=== PATIENT | male | born 1935 | race Caucasian/White ===

== ENCOUNTER 2017-10-04 21:03 | Emergency (ER) | payer MEDICARE ==
[2010-02-18 08:51] VITALS: BMI 21.8
[2017-10-05 00:17] LABS: BASOPHILS 0.6 % (0-2); HEMOGLOBIN 13.2 g/dL (13.5-17.5); IMMATURE GRANULOCYTES 0.4 % (0-5); LYMPHOCYTES 15.6 % (15-50); MCH 31.2 pg (26.0-34.0); MCV 94.6 fL (80.0-100.0); MEAN PLATELET VOLUME 8.8 fL (7.4-10.4); MONOCYTES 6.2 % (2-11); NEUTROPHILS 76.2 % (40-80); PLATELET COUNT 186 10x3/uL (130-400); RBC 4.23 10x6/uL (4.20-6.10); RDW 13.9 % (11.5-14.5); WBC 7.2 10x3/uL (4.8-10.8)
[2017-10-05 00:31] LABS: ALBUMIN 3.4 g/dL (3.4-5.0); ALKALINE PHOSPHATASE 73 U/L (46-116); ALT (SGPT) 21 U/L (10-68); CALC OSMOLALITY 281 mosm/kg (275-300); CALCIUM 9.7 mg/dL (8.5-10.1); CARBON DIOXIDE 26.4 mmol/L (21.0-32.0); CHLORIDE - SERUM 105 mmol/L (98-107); CREATININE - SERUM 1.6 mg/dL (0.6-1.3); POTASSIUM - SERUM 5.1 mmol/L (3.5-5.1); PROTEIN - SERUM 6.9 g/dL (6.4-8.2); SODIUM 137 mmol/L (136-145); UREA NITROGEN 31 mg/dL (7-18); eGFR NON AFRICAN AMERICAN 44 mL/min (90-120)
[2017-10-05 00:34] LABS: GLUCOSE 121 mg/dL (74-106)
[2017-10-05 00:37] LABS: TROPONIN-I < 0.017 ng/mL (0.000-0.060)
[2017-10-05 01:05] LABS: APPEARANCE CLEAR (CLEAR); BILIRUBIN NEGATIVE (NEGATIVE); COLOR YELLOW (YELLOW); GLUCOSE NEGATIVE (NEGATIVE); KETONE NEGATIVE (NEGATIVE); NITRITE NEGATIVE (NEGATIVE); PROTEIN 1+ mg/dL (NEGATIVE); SPECIFIC GRAVITY 1.015 (1.005-1.020); UROBILINOGEN NORMAL (NORMAL)
[2017-10-05 01:06] LABS: BACTERIA NONE SEEN /hpf (NONE SEEN); EPITHELIAL CELLS 0-5 /hpf (0-5); RED CELLS - URINE 0-5 /hpf (0-5); WHITE CELLS - URINE 0-5 /hpf (0-5)
== END 2017-10-05 01:55 | disposition home or self-care (01) ==
LOC: D.ER 21:03
PROVIDERS: Physician Assistant Medical
DX: R42 Dizziness and giddiness (principal); E86.0 Dehydration; I10 Essential (primary) hypertension; Z85.01 Personal history of malignant neoplasm of esophagus

== ENCOUNTER → 2018-02-16 15:49 | Outpatient (CLI) | payer MEDICARE, BC ==
[2010-02-18 08:51] VITALS: BMI 21.8
== END | disposition home or self-care (01) ==
LOC: D.MRI 15:49
DX: G96.8 Other specified disorders of central nervous system (principal)

== ENCOUNTER → 2018-08-02 10:13 | Outpatient (CLI) | payer MEDICARE, BC ==
[2010-02-18 08:51] VITALS: BMI 21.8
== END | disposition home or self-care (01) ==
LOC: D.US 10:13
PROVIDERS: ATTEND Family Medicine
DX: R35.0 Frequency of micturition (principal)